=== PATIENT | male | born 1945 | race Caucasian/White ===

== ENCOUNTER → 2018-11-22 | Day surgery (SDC) | payer MEDICARE, OTHER ==
[~2018-11-22] VITALS: Ht 165.1 cm; Wt 93.0 kg
[~2018-11-22] MED LIST: ACETAMINOPHEN 325 MG TABLET. PO SCH; ALIS300T PO; ATOR20TA PO; CHOL2000 PO; DEXAMETHASONE SOD PHOS 20 MG/5 ML VIAL. ONE; HYDR-2759 PO; HYDR12.58 PO; HYDROmorphone 2 MG/ML VIAL IV PRN; IOHEXOL 300 MG/ML 100ML VIAL. ONE; IV RINGERS,LACTATED 1000ML 1,000 ML IV SCH; LIDOCAINE 2% JELLY 6ML IN APPLICATOR. ONE; LIDOCAINE 2% PF 5 ML VIAL. ONE; MITOMYCIN IRR ONE; MORPHINE SULFATE 2 MG/ML VIAL. IV PRN; NALOXONE 0.4 MG/ML VIAL. IV PRN; ONDANSETRON PF 4 MG/2 ML VIAL. IV PRN; ONDANSETRON PF 4 MG/2 ML VIAL. ONE; PHENYLEPHRINE in 0.9% NACL PF 1 MG/10 ML SYRINGE. IV ONE; PROCHLORPERAZINE 10 MG/2 ML VIAL. IV PRN; PROPOFOL 20 ML IV ONE; SEVOFLURANE 61 TO 120 MINUTES. IH ONE; SILD50TA PO; WATER FOR INJECTION STERILE IRR ONE; ceFAZolin 2GM PREMIX 2 GM/50 ML BAG IV ONE; fentaNYL PF VIAL 100 MCG/2 ML VIAL IV PRN; fentaNYL PF VIAL 250 MCG/5 ML VIAL ONE
--- NOTE | 2018-11-22 08:43 | PDOC4 ---
OPERATIVE NOTE Date: Date: Nov 22, 2018 Pre-Op Diagnosis: Bladder tumor Post-Op Diagnosis: same Procedure Performed: cysto, TUR-BT (med) Surgeon: cristian Anesthesia Type: gen Blood Loss: 25cc Specimans Obtained: bladder tumor pieces Findings: multi-focal tumors on L lateral wall approx 1 cm from L UO. The tumors appeared to be superficial. One was inside a small diverticulum. Complications: none Operative Note: Pt prepped and draped in usual fashion. IV abx admin'd. Pt in lithotomy pos'n Cysto performed with 21-F cystoscope. The prostate was obstructing in bilobar config. There was mod trabec of bladder. There were approx 5 tumors on L lateral wall of bladder. The tumors were removed in piece-meal fashion with the cold cup forceps. Care was taken to avoid perforation of the bladder. The bx sites were then cauterized with the Bugbee cautery. Care was taken to avoid the L UO. On final inspection, there was no bleeding. The scope was removed and an 18-appiah was placed and the bladder emptied. Mitomycin 20 mg in 50 cc Saline was then instilled into bladder and the catheter clamped. Patient was awakened and transferred to RR in stable cond'n. Disp: Drain bladder via appiah in 1 hr and then remove appiah 15 mins after drained. Home when fully recovered. Rx Lortab. Pt to call office for f/u appt. LON HSU MD Nov 22, 2018 08:43
[2018-11-22 10:15] VITALS: BP 140/83
--- NOTE | 2018-11-23 15:07 | PATHOLOGY ---
[facility] Accession Number: [id number] . 01 Material submitted: . bladder - BLADDER TUMOR . 01 Clinical history: . Bladder cancer . 02 Diagnosis: Bladder tumor, transurethral resection: - PAPILLARY LOW GRADE UROTHELIAL CARCINOMA, NONINVASIVE. SEE COMMENT. - Chronic inflammation. (JPM:[place]; 11/23/2018) QMS/11/23/2018 . 02 Comment: Sections of the bladder tumor transurethral resection reveal a papillary low-grade urothelial carcinoma. The underlying lamina propria shows chronic inflammation. There is no evidence of tumor invasion of lamina propria. There is no muscularis propria present in the specimen. The case is also examined by Dr. Maxwell, who concurs with the diagnosis. (JPM:[place]; 11/23/2018) . 02 Electronically signed: . Mike Herbert MD, Pathologist NPI- [id number] . 01 Gross description: . The specimen is received in formalin, labeled "Clifton Mcintyre, bladder tumor", are multiple irregular fragments of pearson-pink tissue measuring 1.0 x 0.7 x 0.2 cm in aggregate, entirely submitted in A1. ([facility]; 11/22/2018) SHS/SHS . 02 Pathologist provided ICD-10: C67.9 . 02 CPT . 008584 Specimen Comment: A courtesy copy of this report has been sent to Specimen Comment: [phone], . Specimen Comment: Report sent to / DR HENDRICKS Performed at: 01 [facility] [address], [place], [place] [id number] MD Darryl Pelayo MD Phone: [phone] Performed at: 02 [facility] [address] [place], [place] [id number] MD Mike Herbert MD Phone: [phone]
== END | disposition home or self-care (01) ==
LOC: SURG 05:47
PROVIDERS: ATTEND Urology
DX: C67.2 Malignant neoplasm of lateral wall of bladder (principal); N30.20 Other chronic cystitis without hematuria; N32.3 Diverticulum of bladder; I12.9 Hypertensive chronic kidney disease with stage 1 through stage 4 chronic kidney disease, or unspecified chronic kidney disease; N18.3 Chronic kidney disease, stage 3 (moderate); N40.1 Benign prostatic hyperplasia with lower urinary tract symptoms; N13.8 Other obstructive and reflux uropathy; K21.9 Gastro-esophageal reflux disease without esophagitis; E78.5 Hyperlipidemia, unspecified; G47.33 Obstructive sleep apnea (adult) (pediatric); Z82.49 Family history of ischemic heart disease and other diseases of the circulatory system; Z84.1 Family history of disorders of kidney and ureter; D64.9 Anemia, unspecified; Z79.899 Other long term (current) drug therapy; Z98.890 Other specified postprocedural states
CPT/HCPCS: 51720; 52234; 88307; A7015; J0696; J1100; J2001; J2370; J2405; J2704; J3010; J7120; J9280; Q9967